=== PATIENT | female | born 1985 | race Two or more races ===

== ENCOUNTER 2019-08-08 09:50 | Outpatient (CLI) | payer OTHER ==
[~2019-08-08 09:50] MED LIST: FOLIC ACID1 MG
== END 2019-08-08 09:54 | disposition home or self-care (01) ==
LOC: SONOGRAMA 09:50 → MAMO-SONO 10:15
DX: Z34.80 Encounter for supervision of other normal pregnancy, unspecified trimester (principal)

== ENCOUNTER → 2019-11-19 | Outpatient (CLI) | payer OTHER | END | disposition home or self-care (01) | LOC: PRENATAL 09:00 | DX: O35.3XX0 Maternal care for (suspected) damage to fetus from viral disease in mother, not applicable or unspecified (principal); O09.522 Supervision of elderly multigravida, second trimester; O99.212 Obesity complicating pregnancy, second trimester ==

== ENCOUNTER 2020-01-29 09:18 | Outpatient (CLI) | payer OTHER | END 2020-01-29 09:28 | disposition home or self-care (01) | LOC: LAB 09:18 | DX: Z34.80 Encounter for supervision of other normal pregnancy, unspecified trimester (principal); Z11.4 Encounter for screening for human immunodeficiency virus [HIV] ==

== ENCOUNTER → 2020-01-29 | Outpatient (CLI) | payer OTHER | END | disposition home or self-care (01) | LOC: PRENATAL 08:41 | DX: O26.843 Uterine size-date discrepancy, third trimester (principal); O09.523 Supervision of elderly multigravida, third trimester; Z36.89 Encounter for other specified antenatal screening ==

== ENCOUNTER 2020-02-11 12:47 | Outpatient (CLI) | payer OTHER | END 2020-02-11 13:16 | disposition home or self-care (01) | LOC: LAB 12:47 | PROVIDERS: ATTEND Specialist | DX: Z34.80 Encounter for supervision of other normal pregnancy, unspecified trimester (principal); Z11.4 Encounter for screening for human immunodeficiency virus [HIV] ==

== ENCOUNTER 2020-03-24 09:45 | Inpatient (IN) | payer OTHER ==
[~2020-03-24] VITALS: Ht 160 cm; Wt 100.7 kg
[2020-04-03] MEDS ORDERED: PRENATAL + DHA1 EAC1 PO (04:35)
== END 2020-04-05 12:35 | disposition home or self-care (01) | DRG 807 ==
LOC: LDR 04-03 04:13 → OB/GYN 04-03 04:13 → SURH 04-05 09:45 → O/R 04-05 09:45 → LDR 04-05 09:45 → OB/GYN 04-05 12:35
PROVIDERS: ADMIT Specialist; ATTEND Specialist
PROC: 10E0XZZ Delivery of Products of Conception, External Approach (ICD-10-PCS; principal; 2020-04-03)
PROC: 0HQ9XZZ Repair Perineum Skin, External Approach (ICD-10-PCS; 2020-04-03)
PROC: 3E033VJ Introduction of Other Hormone into Peripheral Vein, Percutaneous Approach (ICD-10-PCS; 2020-04-03)
PROC: 4A1HXCZ Monitoring of Products of Conception, Cardiac Rate, External Approach (ICD-10-PCS; 2020-04-03)
DX: O70.0 First degree perineal laceration during delivery (principal); Z37.0 Single live birth; Z3A.39 39 weeks gestation of pregnancy; Z20.828 Contact with and (suspected) exposure to other viral communicable diseases